=== PATIENT | male | born 1960 ===

== ENCOUNTER 2025-06-18 08:29 | Day surgery (SDC) | payer MEDICARE ==
[~2025-06-18] VITALS: Ht 170.2 cm; Wt 69.5 kg
[~2025-06-18 08:29] MED LIST: Cellcept500 MG PO; OFEV150 MG PO; PRED5 PO
[2025-06-18 09:06] VITALS: BP 127/85
--- NOTE | 2025-06-18 09:11 | NUR ---
Pre-Op teaching done. Pt verbalizes understanding. Ambulatory in Day Surgery. History, Chart, Medications and Allergies reviewed before start of procedure. Patient States Post-Procedure ride home has been arranged. Patient confirms NPO status and agrees with scheduled surgery.
--- NOTE | 2025-06-18 10:15 | NUR ---
06/18/25 1015 Jeannie Seymour PEDIATRIC COLONOSCOPE, YELLOW/GREEN [id number].
[2025-06-18 10:38] VITALS: BP 119/76
--- NOTE | 2025-06-18 10:39 | NUR ---
PT 98% ON RA BUT WOULD LIKE 02 ON FOR COMFORT. O2 ON AT 3L/MIN VIA NC PER PT REQUEST.
[2025-06-18 10:50] VITALS: BP 116/75
--- NOTE | 2025-06-18 11:13 | NUR ---
Discharge instructions reviewed with patient. Patient verbalizes understanding. Copy given to patient to take home. Patient States Post-Procedure ride home has been arranged. Discharged via wheelchair to private car for ride home.
== END 2025-06-18 11:15 | disposition home or self-care (01) ==
LOC: ORSCMMR 08:29 → ORD 09:45 → ORSCMMR 11:15
PROVIDERS: Surgery
PROC: 0DJD8ZZ Inspection of Lower Intestinal Tract, Via Natural or Artificial Opening Endoscopic (ICD-10-PCS; principal; 2025-06-18 09:45)
DX: Z12.11 Encounter for screening for malignant neoplasm of colon (principal); K64.8 Other hemorrhoids; Z86.0101 Personal history of adenomatous and serrated colon polyps; J45.909 Unspecified asthma, uncomplicated; G20.A1 Parkinson's disease without dyskinesia, without mention of fluctuations; Z79.899 Other long term (current) drug therapy
CPT/HCPCS: J2704; J7120